=== PATIENT | female | born 1955 | race Caucasian/White ===

== ENCOUNTER → 2023-09-14 | Outpatient (CLI) | payer MEDICARE, OTHER ==
--- NOTE | 2023-09-14 11:17 | CTL ---
EXAMINATION TYPE: CT Low Dose Lung DATE OF EXAM: 09/14/2023 9:22 AM CLINICAL INDICATION:Female, 67 years old with history of F17.210 nicotine dependence; Personal hx of tobacco use, pt quit one year ago, was 1 ppd x 35 years, no concerns noted. Family hx of lung ca. , h istory of tobacco use. COMPARISON: None. TECHNIQUE: Multiple axial non-contrast scans were obtained from approximately the lung apices through the upper abdomen. Coronal and sagittal reformatted images were obtained. Low dose technique was uti lized. CT DLP: 70 mGycm, Automated exposure control for dose reduction was used. CT Contrast: Contrast used: None Oral contrast used: None FINDINGS: ======== Lack of intravenous contrast and low dose technique limits the evaluation of the vascular and soft ti ssue structures. LUNGS: No evidence of pulmonary fibrosis. No evidence of focal consolidation, pneumothorax or pleural effusion. Centrilobular emphysema changes. Nodules: Scattered nodules are seen throughout the lungs examples include RUL: 4 mm subpleural series 9 image 13 RML: Triangular-shaped probable atelectasis near the diaphragm. Additional 3 mm pulmonary nodule series 9 image 32. RLL: 5 mm series 9 image 36, 8 mm series 9 image 42. YUDITH: 4 mm series 9 image 11. LLL: Subpleural nodule measuring 7 mm series 9 image 40, 5 mm AIRWAY: Patent and unremarkable. HEART: Size within normal limits. MEDIASTINUM: No gross evidence of adenopathy. VASCULATURE: No aortic aneurysm. Scattered atherosclerosis and arterial vasculature. MUSCULOSKELETAL: No acute osseous abnormalities SOFT TISSUES/LYMPH NODES: Unremarkable. LOWER NECK: No significant findings. UPPER ABDOMEN: Gallstone in the gallbladder lumen. IMPRESSION: 1. Scattered pulmonary nodules. Some measuring up to 8 mm in the right lower lobe base. Short-term fo llow-up in 6 months recommended given baseline p.m. 2. Mild emphysema. 3. Cholelithiasis. CT LUNG RAD AND CT CHEST RECOMMENDATION: Lung-Rad 3 Probably Benign: 6 month follow-up LDCT. S Modifier (other clinically significant findings): None Recommend smoking cessation (if current smoker), or continuation of smoking cessation (if prior smoke r). Annual screening for lung cancer with low-dose computed tomography is recommended in adults ages 55 to 77 years who have a 30 pack-year smoking history and currently smoke or have quit within the [facility] 15 years. Screening should be discontinued once a person has not smoked for 15 years or develops a health problem that substantially limits life expectancy or the ability or willingness to have curat mirela lung surgery. Lung rads 2021 [email or web address]
== END | disposition home or self-care (01) ==
LOC: RADCTMAIN 08:51
PROVIDERS: ATTEND Family Medicine
DX: Z12.2 Encounter for screening for malignant neoplasm of respiratory organs (principal); K80.20 Calculus of gallbladder without cholecystitis without obstruction; J43.2 Centrilobular emphysema; F17.210 Nicotine dependence, cigarettes, uncomplicated
CPT/HCPCS: 71271

== ENCOUNTER 2023-11-04 13:30 | Observation (INO) | payer MEDICARE, OTHER ==
[~2023-11-04 13:30] MED LIST: HYDROmorphone 0.5 MG/0.5 ML SYRINGE ONE; ONDANSETRON 4 MG/2 ML VIAL ONE; SODIUM CHLORIDE 0.9% 1,000 ML BAG ONE
[2023-11-04] MEDS ORDERED: PIPERACILLIN-TAZOBACTAM 3.375 GM VIAL ONE ×2 (15:30→20:34)
[2023-11-04] MEDS ORDERED: HYDROmorphone 1 MG/ML 1 ML SYRINGE ONE ×3 (15:31→23:47)
[2023-11-04] MEDS ORDERED: LIDOCAINE 1%-EPI 1:100,000 20 ML VIAL ONE (16:02)
[2023-11-04] MEDS ORDERED: LACTATED RINGERS 1,000 ML BAG ONE (16:02)
[2023-11-04] MEDS ORDERED: fentaNYL (PF) 50 MCG/ML 2 ML AMP ONE (16:18)
[2023-11-04] MEDS ORDERED: ONDANSETRON 4 MG/2 ML VIAL ONE (16:18)
[2023-11-04] MEDS ORDERED: SUCCINYLCHOLINE CHLORIDE 200 MG/10 ML VIAL IV ONE (16:18)
[2023-11-04] MEDS ORDERED: MIDAZOLAM 2 MG/2 ML VIAL ONE (16:18)
[2023-11-04] MEDS ORDERED: PROPOFOL 10 MG/ML 20 ML VIAL IV ONE (16:18)
[2023-11-04] MEDS ORDERED: HEPARIN SODIUM,PORCINE 5,000 UNIT/ML 1 ML VIAL ONE (16:18)
[2023-11-04] MEDS ORDERED: NEOSTIGMINE 1 MG/ML 10 ML VIAL ONE (16:18)
[2023-11-04] MEDS ORDERED: PHENYLEPHRINE 10 MG/ML VIAL ONE (16:18)
[2023-11-04] MEDS ORDERED: DEXAMETHASONE SOD PHOSPHATE 4 MG/ML 1 ML VIAL ONE (16:18)
[2023-11-04] MEDS ORDERED: diphenhydrAMINE 50 MG/ML 1 ML VIAL ONE (16:18)
[2023-11-04] MEDS ORDERED: LIDOCAINE 1% INJ 10MG/ML (20 ML MDV) ONE (16:18)
[2023-11-04] MEDS ORDERED: ROCURONIUM 10 MG/ML (5 ML VIAL) IV ONE (16:18)
[2023-11-04] MEDS ORDERED: GLYCOPYRROLATE 0.2 MG/ML 2 ML VIAL ONE (16:18)
[2023-11-04] MEDS ORDERED: HYDROmorphone 0.5 MG/0.5 ML SYRINGE ONE (18:25)
[2023-11-04] MEDS ORDERED: HYDROcodone/APAP 5-325MG 1 EACH TAB ONE (20:35)
[2023-11-04] MEDS ORDERED: SODIUM CHLORIDE 0.9% 100 ML BAG ONE (21:00)
[2023-11-05] MEDS ORDERED: PIPERACILLIN-TAZOBACTAM 3.375 GM VIAL ONE ×3 (04:30→20:31)
[2023-11-05] MEDS ORDERED: HYDROmorphone 1 MG/ML 1 ML SYRINGE ONE ×5 (05:07→23:28)
[2023-11-05] MEDS ORDERED: PANTOPRAZOLE 40 MG TABLET PO ONE (09:48)
[2023-11-05] MEDS ORDERED: SODIUM CHLORIDE 0.9% 100 ML BAG IV ONE (23:59)
[2023-11-06] MEDS ORDERED: HYDROmorphone 1 MG/ML 1 ML SYRINGE ONE ×4 (01:57→12:02)
[2023-11-06] MEDS ORDERED: PIPERACILLIN-TAZOBACTAM 3.375 GM VIAL ONE (05:19)
[2023-11-06] MEDS ORDERED: SODIUM CHLORIDE 0.9% 100 ML BAG IV ONE (08:00)
[2023-11-06] MEDS ORDERED: PANTOPRAZOLE 40 MG TABLET PO ONE (08:55)
--- NOTE | 2023-12-07 16:12 | US ---
Site ID [facility] Lesvia Singer ID [id number] Order # Procedure US GALLBLADDER EXAMINATION TYPE: US abdomen complete DATE OF EXAM: 11/04/2023 COMPARISON: THIS EXAM WAS READ DURING PACS DOWNTIME, NO PRIORS AVAILABLE. CLINICAL INDICATION: pain TECHNIQUE: Multiple sonographic images of the right upper quadrant were performed FINDINGS: EXAM MEASUREMENTS: in Tech Impression: Pancreas appears wnl as visualized Liver 13.8 cm GB: Hydropic, sludge with stones seen. GB wall: 0.19 CBD: 0.67 RT kidney: 8.7 x 5.3 x 4.1cm - lower pole obscured by bowel gas. AC Pancreas: wnl Liver: wnl Gallbladder: wnl Evidence for sonographic Flanagan's sign: No CBD: wnl Right Kidney: wnl IMPRESSION: Hydropic gallbladder with sludge and gallstones.
--- NOTE | 2023-12-17 12:58 | DS ---
DISCHARGE SUMMARY Admitted for acute cholecystitis, discharged with acute cholecystitis status post cholecystectomy. She apparently has some trouble with the nurse last night, possibly not giving her pain medicines through the IV. Even though, she thinks she gave him saline, had some issues with him, talking about his , taking pain medications is very upset and told to call the housekeeper for nursing. PHYSICAL EXAMINATION: VITAL SIGNS: Blood pressure is 114/74, temperature 98.2, pulse 83, respiratory rate 18. CARDIOVASCULAR: S1, S2. LUNGS: Clear. GI: Incisions are intact. Ceftin 500 b.i.d. for 7 days. Percocet 5/325 every 4 to 6 hours for pain. after surgery, I gave her 20 pills for followup in office in a week or two. CONDITION: Stable. PROGNOSIS: Guarded. Diet as tolerated. She will shower and she will be able to go home in stable condition. Prognosis good. Follow up with Dr. Garcia. Diet as tolerated. MMDOCL / DAVIDN: [id number] /
--- NOTE | 2023-12-17 14:28 | CONS ---
CONSULTATION This is a female, who is admitted to service through the emergency room. The patient was brought in for pain. Her ultrasound shows a large hydropic inflamed gallbladder with stones and sludge. The patient admitted to the hospital for acute cholecystitis. PAST MEDICAL HISTORY: Please see notes suture. PHYSICAL EXAMINATION: VITAL SIGNS: Stable. ABDOMEN: Soft. The patient has a well-healed midline scar. There is Ultrasound shows evidence of cholelithiasis and thickened gallbladder wall. Acute cholecystitis. Patient will undergo laparoscopic cholecystectomy. MMODL / IJN: [id number] /
--- NOTE | 2023-12-17 14:28 | HP ---
HISTORY AND PHYSICAL HISTORY OF PRESENT ILLNESS: Came to hospital for right upper quadrant abdominal pain, taken to surgery for cholecystectomy for acute cholecystitis with cholelithiasis. She is in severe pain postop. She is getting Dilaudid every 3 hours p.r.n., Zofran for nausea which makes her vomit, so we are going to hold that, possibly give her Toradol shots. She is on IV Zosyn every 8 hours, omeprazole 20 b.i.d. daily, methotrexate 17.5 on Fridays, and tramadol p.r.n. for pain. PHYSICAL EXAMINATION: CARDIOVASCULAR: S1, S2. LUNGS: Clear. GI: Soft. Incisions x5. HEMATOLOGIC: Negative Homans. PSYCH: Fair mood and affect. HEENT: Pupils equal, round, and reactive. ASSESSMENT: Acute cholecystitis, status post cholecystectomy, status post lap yomaira. Surgery is consulted for pain control, IV antibiotics. Possible discharge home in the morning. Home medications have been ordered. She is admitted to [facility]. Continue with fluids. Antibiotics overnight. Check her labs in the morning. Prognosis guarded. MMODL / IJN: [id number] /
--- NOTE | 2023-12-17 14:28 | OP ---
OPERATIVE REPORT DATE OF SERVICE : 11/04/2023 PROCEDURE: Laparoscopic cholecystectomy. PREOPERATIVE DIAGNOSIS: Acute cholecystitis. POSTOPERATIVE DIAGNOSIS: Acute cholecystitis. DIV[employer]CH[employer] MANAGER: None. ANESTHESIA: General endotracheal tube anesthesia. ESTIMATED BLOOD LOSS: 10 mL. DESCRIPTION OF PROCEDURE: The patient was placed on the operating table in supine position. She received general anesthesia. Her abdomen was prepped and draped in usual sterile fashion. A supraumbilical skin incision was made. Then, using a pair of Anthony clamps, the fascia was grasped. The Veress needle was positioned into the peritoneal cavity with a positive drop test. The abdomen was insufflated. After adequate insufflation, a 5 mm trocar was placed into the peritoneal cavity. Next, the patient was placed in reverse Trendelenburg [id number] position. An 8 mm trocar was placed in the epigastric port site and then two 5 mm trocars were placed in the right lateral and right mid abdomen position. The gallbladder appeared hydropic. The gallbladder was aspirated and then, the gallbladder was grasped at the fundus and traction of the gallbladder was placed in a cephalad and lateral position. The cystic duct was bluntly dissected. The cystic duct was seen entering the common bile duct. The critical view of safety was achieved. The cystic duct was then ligated with 2-0 Ethibond sutures and tied at the base, and using the Harmonic scissors, the gallbladder was removed from the liver bed. Several small bleeding points were coagulated with electrocautery. The gallbladder was extracted through the epigastric port site. The abdomen was irrigated. No bleeding was seen. The trocars were withdrawn. The skin was closed with interrupted 3-0 Monocryl suture. Dermabond dressing was applied. The patient tolerated the procedure well. She was sent to recovery room in stable condition. MMODL / IJN: [id number] /
== END 2023-11-06 12:05 | disposition home or self-care (01) ==
LOC: 6NMEDSUR 13:30 → UNDOADMOB 19:05 → 6NMEDSUR 19:05 → INTOOBSV 19:05 → UNDODISIN 11-06 12:22
PROVIDERS: ADMIT Family Medicine; ATTEND Family Medicine
DX: K81.2 Acute cholecystitis with chronic cholecystitis (principal)
CPT/HCPCS: 76705; 88304; 96361; 96374; 96375; 99285